=== PATIENT | female | born 1945 | race Caucasian/White ===

== ENCOUNTER → 2016-06-13 | Outpatient (CLI) | payer OTHER, MEDICARE ==
--- NOTE | 2016-06-13 08:52 | US ---
"Ultrasound of the Abdomen Limited History: R14.0, pancreatic exocrine insufficiency. Comparison: None. Findings: Gallbladder: No shadowing calculi, wall thickening, or pericholecystic fluid. Common bile duct is 2 m m in diameter which is normal. Liver: Homogeneous in echogenicity without definite focal solid lesions and measures 15 cm in length. Main portal vein is patent. Renal: Right kidney measures 10 x 4 x 5 cm without hydronephrosis. Pancreas: Homogeneous without peripancreatic fluid. Cystic lesion in the tail of the pancreas measuri ng 1.3 x 1.2 x 1 cm. Aorta: Atherosclerotic aorta without aneurysm. Impression: 1. Pancreatic tail cystic lesion measuring 1.3 x 1.2 x 1 cm. Differential diagnosis includes cystic n eoplasm, mucinous cystadenoma, mucinous cyst adenocarcinoma, pancreatic pseudocyst, among other etiol ogies. Recommend CT abdomen with contrast enhancement, pancreas protocol, for further characterizatio n in order to exclude malignancy. 2. No cholelithiasis or biliary ductal dilation. 3. Atherosclerotic aorta without aneurysm. A Follow-Up Required test result has been communicated via the [facility] | Critical Result syst em on 06/13/2016 8:48, Message ID [id number]."
== END ==
LOC: BMCIMAGING 07:46
PROVIDERS: ATTEND Allergy & Immunology Allergy
DX: K86.2 Cyst of pancreas (principal); I70.0 Atherosclerosis of aorta

== ENCOUNTER → 2016-06-16 | Outpatient (CLI) | payer OTHER, MEDICARE ==
[~2016-06-16] MED LIST: IOPAMIDOL (ISOVUE-300) 100 ML BTL IV ONE
[2016-06-16 13:52] LABS: CREATININE 0.9 mg/dL (0.6-1.0); GLOMERULAR FILTRATION RATE > 60
--- NOTE | 2016-06-16 15:49 | CT ---
CT Abdomen with Contrast History: Pancreatic cyst on recent abdominal ultrasound. Comparison: Abdominal ultrasound June 13, 2016. MR lumbar spine June 09, 2014. Technique: Axial unenhanced images were obtained through the abdomen in the arterial and portal venou s phases following the uneventful intravenous administration of 98 mL Isovue-300. Oral contrast was a dministered. Dose reduction techniques were utilized. Creatinine is 0.9. Findings: Left lower lobe granuloma is present. Scattered ill-defined areas of hyperenhancement in the liver are likely related to benign perfusion a nomalies, with no lesions identified on the delayed phase and normal liver contour. The spleen and ad renals are normal. There is a 1.3 x 0.9 cm simple appearing cyst in the posterior aspect of the pancr eatic body (series 4 image 73), corresponding to the finding on ultrasound. This is separate from the pancreatic duct. The pancreas otherwise normal. Tiny hypodensities in the kidneys are too small to c haracterize. Moderate stool is present in the colon. The visible colon and small bowel are normal caliber. The vis ible portions of the appendix are normal. A small fat-containing periumbilical hernia is present. Moderate atherosclerosis is present in a normal caliber aorta. The IVC, hepatic, portal, splenic, and superior mesenteric veins are patent. Circumaortic left renal vein is present. Accessory right hepat ic vein is noted. No pathologically enlarged lymph nodes are identified. Moderate compression fracture of L5 is stable. Impression: 1. 1.4-cm simple appearing pancreatic cyst. Follow-up MRI or CT is recommended in one year. 2. Additional findings as above. Findings and recommendations discussed with Makenna Handy June 16, 2016 at 1540 hours.
== END ==
LOC: FIMAGING 12:58
PROVIDERS: ATTEND Allergy & Immunology Allergy
DX: K86.2 Cyst of pancreas (principal); K42.9 Umbilical hernia without obstruction or gangrene; I70.0 Atherosclerosis of aorta; M48.56XA Collapsed vertebra, not elsewhere classified, lumbar region, initial encounter for fracture; J98.4 Other disorders of lung
CPT/HCPCS: 74160; Q9967

== ENCOUNTER 2016-12-28 04:39 | Inpatient (IN) | payer OTHER, MEDICARE ==
--- NOTE | 2016-12-28 04:54 | EDPHY ---
H & P Stated Complaint: cat bite, redness and pain worsening HPI/ROS: HPI CHIEF COMPLAINT: Right arm pain, cat bite, redness, swelling HISTORY OF PRESENT ILLNESS: This patient very pleasant 71-year-old female she does have significant past medical history for AFib on Coumadin, additionally recent diagnosis of small bowel bacterial overgrowth, she presents emergency room after she got bit by her own cat around 10:00 a.m. yesterday. Right forearm. Around 8:00 p.m. yesterday she went to urgent care with pain erythema and swelling. She now presents to the emergency room at 5 o'clock in the morning with worsening erythema, swelling and pain. She did take 1 dose of Augmentin. She states the pain and swelling redness has progressed overnight. She did not have an x-ray. She denies fever. She states her tetanus shot is updated yesterday at urgent care. Past Medical History: AFib on Coumadin, small-bowel overgrowth Past Surgical History: No recent surgery Social History: Denies daily use drugs alcohol tobacco products Family History: Noncontributory ROS REVIEW OF SYSTEMS: A comprehensive 10 point review of systems is otherwise negative aside from elements mentioned in the history of present illness. Exam Constitutional triage nursing summary reviewed, vital signs reviewed, awake/ alert. Eyes normal conjunctivae and sclera, EOMI, PERRLA. HENT normal inspection, atraumatic, moist mucus membranes, no epistaxis, neck supple/ no meningismus, no raccoon eyes. Respiratory clear to auscultation bilaterally, normal breath sounds, no respiratory distress, no wheezing. Cardiovascular rate normal, regular rhythm, no murmur, no edema, distal pulses normal. Gastrointestinal soft, non-tender, no rebound, no guarding, normal bowel sounds, no distension, no pulsatile mass. Genitourinary no CVA tenderness. Musculoskeletal no midline vertebral tenderness, full range of motion, no calf swelling, no tenderness of extremities, no meningismus, good pulses, neurovascularly intact. Skin right forearm dorsal aspect from the wrist up to 3rd of the forearm shows erythema, warmth, no crepitus, there is 1 discrete lesion with a cat bit her. Additionally over the dorsum of the right hand there was a recent surgical procedure with AK removed. She does have full range of motion of her wrist. Full range of motion of her elbow. Neurologic awake, alert and oriented x 3, AAOx3, moves all 4 extremities equally, motor intact, sensory intact, CN II-XII intact, normal cerebellar, normal vision, normal speech. Psychiatric normal mood/affect. Heme/Lymph/Immune no lymphadenopathy. Differential Diagnosis: Includes but is not limited to cat bite, cat bite causing cellulitis, significant cat bite infection, retained foreign body from cat bite. Medical Decision Making: Plan for this patient x-ray right forearm to rule out foreign body, IV establishment with blood cultures, blood work including plantar markers, failure of p. o. Augmentin. Will start on Unasyn. I have outlined the new area of spread of redness and dated. Re-evaluation: This patient need to be admitted to the hospitalist service for IV antibiotics. Reason for admission right forearm cellulitis from CAT bite progressively getting worse. Despite oral antibiotics outpatient. Source: Patient - Personal History Current Tetanus/Diphtheria Vaccine: Yes Tetanus Vaccine Date: 2016 - Medical/Surgical History Hx Asthma: No Hx Chronic Respiratory Disease: No Hx Diabetes: No Hx Cardiac Disease: Yes Hx Renal Disease: No Hx Cirrhosis: No Hx Alcoholism: Yes Hx HIV/AIDS: No Hx Splenectomy or Spleen Trauma: No Other PMH: PMHx: hypothyroid, insomnia/anxiety, atrial fibrillation. PSHx: tonsillectomy - Social History Smoking Status: Never smoked Constitutional: Initial Vital Signs Temperature (C) 36.4 C 12/28/16 04:45 Heart Rate 59 L 12/28/16 04:45 Respiratory Rate 14 12/28/16 04:45 Blood Pressure 130/60 H 12/28/16 04:45 O2 Sat (%) 96 12/28/16 04:45 O2 Delivery Mode Room Air Allergies/Adverse Reactions: No Known Allergies Allergy (Unverified 12/27/12 16:31) Home Medications: Medication Instructions Recorded Acetaminophen [Tylenol ES 500 mg 1,000 mg PO Q6HRS PRN 12/28/16 (*)] Denosumab [Prolia] 60 mg SC .[id number] 12/28/16 Herbals/Supplements -Info Only 1 ea PO AD 12/28/16 Levothyroxine [Synthroid 25 mcg 25 mcg PO DAILY06 12/28/16 (*)] Olopatadine HCl [Pazeo] 1 drop EACHEYE DAILY PRN 12/28/16 Warfarin Sodium [Coumadin 5MG (*)] 2.5 mg PO MOTH@2100 12/28/16 Warfarin Sodium [Coumadin 5MG (*)] 5 mg PO SUTUWEFRSA@2100 12/28/16 clonazePAM [Klonopin (*)] 0.25 mg PO BID PRN 12/28/16 Medical Decision Making - Data Points Laboratory Results: Laboratory Results 12/29/16 04:35 12/28/16 05:15 Microbiology Results: MICROBIOLOGY 12/28/16 05:30 Blood Blood Culture - Preliminary 12/28/16 05:15 Blood Blood Culture - Preliminary Medications Given: Clonazepam (Klonopin) 0.25 mg PO BID PRN PRN Reason: Anxiety/sleep Stop: 06/26/17 08:14 Last Admin: 12/30/16 00:09 Dose: 0.25 mg Hydromorphone HCl (Dilaudid) 0.2 - 0.4 mg IVP Q2HRS PRN PRN Reason: Pain, Severe Unable to Take PO Stop: 01/07/17 06:35 Last Admin: 12/28/16 07:59 Dose: 0.4 mg Ampicillin Sodium/Sulbactam (Sodium 3 gm/ Sodium Chloride) 100 mls @ 200 mls/ hr IV Q6HRS STACIE PRN Reason: Protocol Stop: 01/27/17 11:59 Last Admin: 12/29/16 23:21 Dose: 100 mls Ketorolac Tromethamine (Toradol) 15 mg IVP Q6HRS [facility] Stop: 01/02/17 17:59 Last Admin: 12/29/16 23:19 Dose: 15 mg Levothyroxine Sodium (Synthroid) 25 mcg PO DAILY06 [facility] Stop: 06/26/17 08:14 Last Admin: 12/29/16 05:59 Dose: 25 mcg Miscellaneous Medication (Non-Formulary) 1 ea PO DAILY@1800 [facility] Stop: 06/27/17 10:29 Last Admin: 12/29/16 18:30 Dose: 1 packet Oxycodone HCl (Oxycodone Ir) 5 - 10 mg PO Q4 PRN PRN Reason: Pain, Severe Able to Take PO Stop: 01/07/17 06:35 Last Admin: 12/28/16 09:28 Dose: 10 mg Warfarin Sodium (Coumadin) 5 mg PO SUTUWEFRSA@2100 [facility] Stop: 06/26/17 20:59 Last Admin: 12/28/16 21:54 Dose: 5 mg Warfarin Sodium (Coumadin) 2.5 mg PO MOTH@2099 [facility] Stop: 06/27/17 20:59 Last Admin: 12/29/16 20:01 Dose: 2.5 mg Discontinued Medications Sodium Chloride (Ns) 1,000 mls @ 0 mls/hr IV ONCE ONE PRN Reason: Wide Open Stop: 12/28/16 05:02 Last Admin: 12/28/16 05:24 Dose: 1,000 mls Ampicillin Sodium/Sulbactam (Sodium 3 gm/ Sodium Chloride) 100 mls @ 200 mls/ hr IV EDNOW ONE PRN Reason: Protocol Stop: 12/28/16 05:32 Last Admin: 12/28/16 05:48 Dose: 100 mls Ketorolac Tromethamine (Toradol) 30 mg IVP ONCE ONE Stop: 12/28/16 12:01 Last Admin: 12/28/16 13:16 Dose: 30 mg Miscellaneous Medication (Non-Formulary) 1 ea PO DAILY [facility] Stop: 06/27/17 10:29 Last Admin: 12/29/16 13:58 Dose: Not Given Morphine Sulfate (Morphine) 4 mg IVP EDNOW ONE Stop: 12/28/16 05:02 Last Admin: 12/28/16 05:23 Dose: 2 mg Ondansetron HCl (Zofran) 4 mg IVP EDNOW ONE Stop: 12/28/16 05:02 Last Admin: 12/28/16 05:23 Dose: 4 mg Departure - Departure Disposition: [facility] Acute Clinical Impression: Right forearm cellulitis Cat bite Qualifiers: Encounter type: initial encounter Qualified Code(s): W55.01XA - Bitten by cat, initial encounter Condition: Fair
[2016-12-28] MEDS ORDERED: NS 1,000 ML IV ONE (05:01)
[2016-12-28] MEDS ORDERED: ONDANSETRON 4 MG/2 ML VIAL IVP ONE (05:01)
[2016-12-28] MEDS ORDERED: AMPICILLIN/SULBACTAM 3 GM in NS 100 ML IV ONE (05:03)
[2016-12-28 05:28] LABS: % IMMATURE GRANULYOCYTES 0.2 % (0.0-1.1); ABSOLUTE IMMATURE GRANULOCYTES 0.02 10^3/uL (0.00-0.10); ADD DIFF? NO; ADD MORPH? NO; ADD SCAN? NO; ATYPICAL LYMPHOCYTE FLAG 0 (0-99); FRAGMENT RBC FLAG 0 (0-99); HEMATOCRIT 39.6 % (38.0-47.0); HEMOGLOBIN 13.7 g/dL (12.6-16.3); LEFT SHIFT FLG 0 (0-99); LIPEMIA HEMOLYSIS FLAG 90 (0-99); MEAN CELL HEMOGLOBIN 29.3 pg (27.9-34.1); MEAN CELL HEMOGLOBIN CONCENTR. 34.6 g/dL (32.4-36.7); MEAN CELL VOLUME 84.8 fL (81.5-99.8); MEAN PLATELET VOLUME 9.7 fL (8.7-11.7); PLATELET CLUMPS FLAG 20 (0-99); PLATELET COUNT 227 10^3/uL (150-400); RED BLOOD CELL COUNT 4.67 10^6/uL (4.18-5.33); RED CELL DISTRIBUTION WIDTH 13.5 % (11.5-15.2)
[2016-12-28 05:37] LABS: SEDIMENTATION RATE 7 MM/HR (0-30)
[2016-12-28 05:38] LABS: APTT 40.9 SEC (23.0-38.0); INR 2.13 (0.83-1.16)
[2016-12-28 05:41] LABS: ALANINE AMINOTRANSFERASE 47 IU/L (9-52); ALBUMIN 4.1 g/dL (3.5-5.0); ALKALINE PHOSPHATASE 55 IU/L (38-126); ANION GAP 11 mEq/L (8-16); ASPARTATE AMINOTRANSFERASE 28 IU/L (14-46); BILIRUBIN,TOTAL 0.7 mg/dL (0.1-1.4); C-REACTIVE PROTEIN 8.5 mg/L (<10.0); CALCIUM 8.9 mg/dL (8.5-10.4); CARBON DIOXIDE 22 mEq/l (22-31); CHLORIDE 110 mEq/L (97-110); CREATININE 0.7 mg/dL (0.6-1.0); GLOMERULAR FILTRATION RATE > 60; GLUCOSE 86 mg/dL (70-100); POTASSIUM 3.7 mEq/L (3.5-5.2); SODIUM 143 mEq/L (134-144); TOTAL PROTEIN 6.4 g/dL (6.3-8.2)
[2016-12-28] MEDS ORDERED: ONDANSETRON 4 MG/2 ML VIAL IVP PRN (06:36)
[2016-12-28] MEDS ORDERED: HYDROmorphONE/DILAUDID 1 MG/ML SYR IVP PRN (06:36)
[2016-12-28] MEDS ORDERED: oxyCODONE IR 5 MG TAB PO PRN (06:36)
[2016-12-28] MEDS ORDERED: ACETAMINOPHEN 325 MG TAB PO PRN (06:36)
--- NOTE | 2016-12-28 07:16 | GHP ---
[f rep st] HISTORY AND PHYSICAL DATE OF ADMISSION: 12/28/2016 CHIEF COMPLAINT: Cat bite. HISTORY: The patient is a 71-year-old female whose cat bit her at 10 a.m. yesterday morning. Her c at has never bitten her before. At about 4 p.m., she started to have a little worsening erythema ar ound the cat bite, and so she went immediately to Urgent Care. She was given a prescription for Aug mentin. She took the first dose last night at 9 p.m. Overnight, the erythema continued to worsen a nd was spreading up her arm beyond the margins demarcated at Urgent Care, so they came to the ER thi s morning. She denies any fever or chills. PAST MEDICAL HISTORY: 1. Atrial fibrillation. 2. Small bowel bacterial overgrowth. MEDICATIONS: Please see computer record for full detailed list. ALLERGIES: No known drug allergies. SOCIAL HISTORY: No smoking. Quit alcohol 38 years ago. Lives with her . REVIEW OF SYSTEMS: Complete review of systems obtained. Review of systems is negative regarding co nstitutional, HEENT, GI, pulmonary, cardiovascular, , hematology, skin, musculoskeletal, endocrine , psych, except for positives and negatives as noted in HPI. FAMILY HISTORY: Reviewed, noncontributory to presenting complaint. PHYSICAL EXAMINATION: GENERAL: Well-developed, well-nourished female in no acute distress. VITAL SIGNS: Temperature is 36.4, pulse 55, blood pressure 134/71, satting 97% on room air. EYES: Shila l conjunctivae. Pupils equal and reactive to light. ENT: Normal ears and nose. Hearing intact. Normal lips and teeth. Oropharynx moist. NECK: Trachea midline. No thyromegaly. CHEST: Normal respiratory effort. LUNGS: Clear to auscultation bilaterally. CARDIOVASCULAR: Regular rhythm. N o murmur. No lower extremity edema. ABDOMEN: Soft, nontender. No hepatosplenomegaly. SKIN: Her right arm has an area of significant erythema most prominent over the right wrist and does extend u p the arm, but not all the way to the elbow. There is an area of redness that is extending beyond t he original area of demarcation. She has difficult movement at the joint with lots of pain in the w rist. MUSCULOSKELETAL: No cyanosis or clubbing. Strength 5/5 upper and lower extremities. NEURO: Cranial nerves intact. Normal sensation to light touch. PSYCH: Alert and oriented x3. Normal m ood and affect. Normal judgment and insight. Normal memory. LABORATORY DATA: White count 8.27, hematocrit 39.6, platelets 227. Sodium 143, potassium 3.7, chlo ride 110, bicarb 22, BUN 20, creatinine 0.7, glucose 86. LFTs are normal. INR is 2.13. Forearm x-ray I looked at myself. Personal interpretation is no gas, no fracture. This case was discussed with Dr. Brandon Armijo, emergency room physician. He started her on IV Unas yn. ASSESSMENT AND PLAN: 1. Right arm cellulitis secondary to cat bite. Continue IV Unasyn. Watch the wrist joint closely to rule out deeper involvement as anticipated improvement occurs on IV Unasyn. She is requiring IV narcotics for pain control. 2. Atrial fibrillation. She is therapeutic on warfarin. This should be continued once her med rec is complete. 3. Small bowel bacterial overgrowth. She is currently off antibiotics. She follows for this at [facility]. She has ongoing gastrointestinal symptoms related to this. CODE STATUS: Full. ADMISSION STATUS: 1. Will admit to observation. Anticipate possible discharge within 24 hours if she has rapid impro vement. 2. DVT prophylaxis. She is chronically on warfarin which will be continued. /[id number]/MODL
[2016-12-28] MEDS: LEVOTHYROXINE 25 MCG TAB PO SCH (09:28)
[2016-12-28] MEDS ORDERED: KETOROLAC 30 MG/1 ML SDV IVP ONE (12:00)
[2016-12-28] MEDS: AMPICILLIN/SULBACTAM 3 GM in NS 100 ML IV SCH ×2 (13:16→18:04)
--- NOTE | 2016-12-28 13:28 | HOSPPROG ---
Hospitalist Progress Note Assessment/Plan: 71-y/o F with PMH on AC, small bowel bacterial overgrowth, here after cat bite on 12/27/16. Had worsening erythema and pain and presented to UC and started on abx. Came back due to ongoing issues. #. R forearm cellulitis 2/2 cat bite: started on IV Unasyn/ wrist joint is still quite painful and has extension beyond the lines will ask ID to come loock at this #. AF: on OAC with warfarin #. hypoT: home meds continued #. LOS: admitted to obs/ await ID input #. DVT ppx: on warfarin. Subjective: Reports pain not controlled. No f/c. Objective: Vital Signs Temp Pulse Resp BP Pulse Ox 99 F 65 16 94/51 L 97 12/28/16 11:20 12/28/16 11:20 12/28/16 11:20 12/28/16 11:20 12/28/16 11:20 12/27/16 12/28/16 12/29/16 05:59 05:59 05:59 Intake Total 1150 Balance 1150 PT 24.0 SEC (12.0-15.0) H 12/28/16 05:15 INR 2.13 (0.83-1.16) H 12/28/16 05:15 - Physical Exam Constitutional: no apparent distress, appears nourished Eyes: PERRL Ears, Nose, Mouth, Throat: moist mucous membranes Skin: other (R forearm with erythema ulnar styloid process) Neurologic: AAOx3 Psychiatric: interacting appropriately, not anxious ICD10 Worksheet Patient Problems: Problems Problem Status Onset Cat bite Acute Right forearm cellulitis Acute
[2016-12-28] MEDS: KETOROLAC 15 MG/1 ML SDV IVP SCH (18:04)
[2016-12-28] MEDS: WARFARIN SODIUM 5 MG TAB PO SCH (21:54)
[2016-12-29] MEDS: KETOROLAC 15 MG/1 ML SDV IVP SCH ×5 (00:30→23:19)
[2016-12-29] MEDS: AMPICILLIN/SULBACTAM 3 GM in NS 100 ML IV SCH ×5 (00:31→23:21)
[2016-12-29 04:48] LABS: % IMMATURE GRANULYOCYTES 0.3 % (0.0-1.1); ABSOLUTE IMMATURE GRANULOCYTES 0.02 10^3/uL (0.00-0.10); ADD DIFF? NO; ADD MORPH? NO; ADD SCAN? NO; ATYPICAL LYMPHOCYTE FLAG 0 (0-99); FRAGMENT RBC FLAG 0 (0-99); HEMATOCRIT 33.9 % (38.0-47.0); HEMOGLOBIN 11.8 g/dL (12.6-16.3); LEFT SHIFT FLG 0 (0-99); LIPEMIA HEMOLYSIS FLAG 90 (0-99); MEAN CELL HEMOGLOBIN 29.8 pg (27.9-34.1); MEAN CELL HEMOGLOBIN CONCENTR. 34.8 g/dL (32.4-36.7); MEAN CELL VOLUME 85.6 fL (81.5-99.8); MEAN PLATELET VOLUME 9.7 fL (8.7-11.7); PLATELET CLUMPS FLAG 20 (0-99); PLATELET COUNT 180 10^3/uL (150-400); RED BLOOD CELL COUNT 3.96 10^6/uL (4.18-5.33); RED CELL DISTRIBUTION WIDTH 13.6 % (11.5-15.2)
[2016-12-29] MEDS: LEVOTHYROXINE 25 MCG TAB PO SCH (05:59)
[2016-12-29] MEDS ORDERED: ACETAMINOPHEN 500 MG TAB PO PRN (07:52)
[2016-12-29] MEDS ORDERED: Olopatadine Hcl [Pazeo] 1 DROP EACHEYE PRN (07:52)
[2016-12-29] MEDS ORDERED: Herbals/Supplements -Info Only PO SCH (08:00)
--- NOTE | 2016-12-29 08:50 | HOSPPROG ---
Hospitalist Progress Note Assessment/Plan: 71-y/o F with PMH on AC, small bowel bacterial overgrowth, here after cat bite on 12/27/16. Had worsening erythema and pain and presented to UC and started on abx. Came back due to ongoing issues. today is my 1st encounter with the patient. Chart reviewed. #. R forearm/wrist cellulitis 2/ cat bite: On IV Unasyn infectious disease team to come see today concerned it is close to r wrist area/ may need further imaging xray shows not retained tooth from the cat #. AF: on OAC with warfarin INR is 2.3 #. hypothyroidism: home meds continued #. LOS: She will require another midnight stay due to the above/she will need IV abx and further evaluation by ID team. #. DVT ppx: on warfarin. Subjective: Sangeetha said her right wrist area is feeling better and has a bit more mobility. Objective: Vital Signs Temp Pulse Resp BP Pulse Ox 36.5 C 57 L 18 142/65 H 98 12/29/16 08:00 12/29/16 08:00 12/29/16 08:00 12/29/16 08:00 12/29/16 08:00 Laboratory Results 12/29/16 04:35 12/28/16 12/29/16 12/30/16 05:59 05:59 05:59 Intake Total 1550 Balance 1550 PT 24.0 SEC (12.0-15.0) H 12/28/16 05:15 INR 2.13 (0.83-1.16) H 12/28/16 05:15 - Physical Exam Constitutional: no apparent distress Eyes: PERRL Ears, Nose, Mouth, Throat: moist mucous membranes, hearing normal Cardiovascular: regular rate and rhythym Respiratory: no respiratory distress Gastrointestinal: normoactive bowel sounds Skin: warm, other (right wrist and forearm area w swelling, redness) Neurologic: AAOx3 Psychiatric: interacting appropriately, not anxious ICD10 Worksheet Patient Problems: Problems Problem Status Onset Cat bite Acute Right forearm cellulitis Acute
[2016-12-29] MEDS ORDERED: VSL PO SCH (10:30)
[2016-12-29] MEDS: VSL PO SCH (18:30)
--- NOTE | 2016-12-29 20:51 | GCON ---
[f rep st] CONSULTATION INFECTIOUS DISEASES CONSULTATION DATE OF CONSULTATION: 12/29/2016 REFERRING PHYSICIAN: Julee Epstein NP REASON FOR CONSULTATION: Right upper extremity cellulitis after a cat bite. HISTORY OF PRESENT ILLNESS: The patient is a 71-year-old female with a past medical history of atri al fibrillation and small intestinal bacterial overgrowth, who I am asked to see in consultation for a right upper extremity cellulitis in the setting of cat bite. The patient was playing with her ca t on Thursday when her cat bit her in the forearm. Several hours later, she had developed pain, juan a thema, prompting evaluation at Urgent Care. She describes being started on Augmentin and having a t etanus booster performed. By 4:00 in the morning, she had progressive erythema, tenderness and spre ad up her forearm, prompting repeat evaluation in the Emergency Department. The patient does descri be that she did have tenderness with range of motion of her wrist and digits. She did not develop a ny lymphangitis. She has been started on Unasyn, and notes that she is clinically improving. She h as not noted any tenderness in the right axilla. No drainage. Primary residual area of tenderness is over the dorsal lateral aspect of her wrist. X-rays were obtained at the time of admission, whic h showed no foreign bodies or acute osseous abnormalities. Based on the above findings, I am now as ked to assist in her ongoing management. PAST MEDICAL HISTORY: Atrial fibrillation, small intestinal bacterial overgrowth. PAST SURGICAL HISTORY: Unremarkable. CURRENT MEDICATIONS: Unasyn 3 g IV q.6 hours, Klonopin as needed for anxiety/sleep, Toradol 15 mg I V q.6 hours, Synthroid 25 mcg p.o. daily, warfarin 5 mg p.o. 5 times per week and 2.5 mg p.o. twice per week. ALLERGIES: No known drug allergies. SOCIAL HISTORY: The patient does not smoke or drink alcohol. No recent travel. Pet cat as above. Cat is an indoor cat that is fully vaccinated. FAMILY HISTORY: Coronary artery disease. REVIEW OF SYSTEMS: Outside that noted in HPI, remainder of 10-system review is unremarkable. PHYSICAL EXAMINATION: VITAL SIGNS: Temperature 36.5, heart rate 57, respiratory rate 18, blood pre ssure 142/65, oxygen saturation 98% on room air. GENERAL: The patient is a thin female in no acute distress. She appears nontoxic. HEENT: There is no scleral icterus, conjunctival injection, or c onjunctival petechiae. Oropharynx is clear without lesions. Dentition is in good repair. Mucous m embranes are moist. There is no nasal discharge. There is no tenderness over the frontal, maxillar y, or mastoid area. NECK: Supple without palpable lymphadenopathy or thyromegaly. CHEST: Clear t o auscultation bilaterally without adventitious sounds. Respiratory effort is normal. CARDIOVASCUL AR: Bradycardic without murmurs, gallops, or rubs. ABDOMEN: Soft, nontender, nondistended. There is no palpable organomegaly. MUSCULOSKELETAL: The right dorsal lateral region of the wrist shows erythema with warmth and tenderness, but no palpable fluctuance; there is faint erythema extending m ore proximally into the forearm with mild warmth and tenderness; patient is able to move her digits without difficulty; there is no pain to palpation of the wrist or with range of motion of the wrist. LYMPHATICS: No cervical or supraclavicular nodes. There is no lymphangitis in the right forearm or upper arm. SKIN: See musculoskeletal exam; no stigmata of endocarditis. Skin is warm and dry t o touch. NEUROLOGIC: The patient is alert and interacts appropriately with examiner. Cranial nerv es 2-12 are grossly intact. Sensation is grossly intact. Muscle tone and bulk are normal. LABORATORY DATA: White blood cell count 7.3, hematocrit 33.9, platelets 180, neutrophils 52% lympho cytes 34%, serum creatinine 0.7, AST 28, ALT 47, bilirubin 0.7, alkaline phosphatase 55, albumin 4.1 , INR is 2.1. Blood cultures x2 sets are no growth. X-ray as outlined above. This was reviewed an d interpreted by me. IMPRESSION: Right upper extremity cellulitis after cat bite. Clinically improving with Unasyn. Mi crobiologic etiologies likely include pasteurella, Staphylococcus aureus, or other oropharyngeal avery ra. We will need to follow area over dorsal lateral aspect of wrist to ensure this does not evolve into drainable focus. Additionally, we will need to keep in mind that puncture in this region is im mediately overlying bone. Current clinical findings preclude transition to oral antibiotics. RECOMMENDATIONS: 1. Continue Unasyn. 2. Elevate upper extremity as feasible. 3. Follow clinical response to above measures. 4. Thank you for this consultation. We will continue to follow the patient with you. /[id number]/MODL
[2016-12-29] MEDS ORDERED: WARFARIN SODIUM 5 MG TAB PO SCH (21:00)
[2016-12-30] MEDS: clonazePAM 0.5 MG TAB PO PRN ×3 (00:09→22:59)
[2016-12-30 04:53] LABS: INR 2.75 (0.83-1.16); PROTIME(PATIENT) 29.4 SEC (12.0-15.0)
[2016-12-30] MEDS: KETOROLAC 15 MG/1 ML SDV IVP SCH ×4 (05:07→22:59)
[2016-12-30] MEDS: AMPICILLIN/SULBACTAM 3 GM in NS 100 ML IV SCH ×4 (05:09→22:59)
[2016-12-30] MEDS: LEVOTHYROXINE 25 MCG TAB PO SCH (05:11)
--- NOTE | 2016-12-30 12:16 | HOSPPROG ---
Hospitalist Progress Note Assessment/Plan: 71-y/o F with PMH on AC, small bowel bacterial overgrowth, here after cat bite on 12/27/16. Had worsening erythema and pain and presented to UC and started on abx. Came back due to ongoing issues. #. R forearm/wrist cellulitis 2/2 cat bite: On IV Unasyn appreciate ID's involvement xray shows not retained tooth from the cat improving/ but still very tender over wrist are #. AF: on OAC with warfarin INR is 2.75 #. hypothyroidism: home meds continued #. LOS: penidng #. DVT ppx: on warfarin. monitor INR closely being on abx Subjective: Fareed said her right forearm area is feeling better. Objective: Vital Signs Temp Pulse Resp BP Pulse Ox 36.4 C 67 18 115/72 97 12/30/16 07:23 12/30/16 07:23 12/30/16 07:23 12/30/16 07:23 12/30/16 07:23 12/29/16 12/30/16 12/31/16 05:59 05:59 05:59 Intake Total 100 Balance 100 PT 29.4 SEC (12.0-15.0) H 12/30/16 04:26 INR 2.75 (0.83-1.16) H 12/30/16 04:26 - Physical Exam Constitutional: no apparent distress, appears nourished Eyes: PERRL Ears, Nose, Mouth, Throat: hearing normal Cardiovascular: regular rate and rhythym Respiratory: no respiratory distress Gastrointestinal: normoactive bowel sounds Skin: other (right forearm area with less redness and swelling/ has a small puncture site that is slightly elevated) Neurologic: AAOx3 Psychiatric: interacting appropriately ICD10 Worksheet Patient Problems: Problems Problem Status Onset Cat bite Acute Right forearm cellulitis Acute
--- NOTE | 2016-12-30 14:26 | PCMIDPN ---
Assessment/Plan: Assessment/Plan: 1. Right forearm cellulitis after cat bite: - Clinically improving with respect to degree and extent of erythema. - started to form a discrete swelling distally near wrist and possibly a second area over bite site.. Close clinical monitoring as this may need eventual I & d. -Cultures reviewed with patient -Currently on Unasyn with clinical response. Continue for now. Still needs IV therapy -Plan of care with patient and , likely need for additional 1-2 days in hospital to see if abscess with form and for possible I & D prior to discharge plans -care coordinated with hospitalist team. meds unasyn 3g q6- 12/29/16 Subjective: afebrile. FEeling better overall. redness has improved. more concentrated redness and swelling down towards wrist with pain. able to move wrist joint but has some pain. denies sob, abd pain or diarrhea. denies numbness/tingling of finger tips. Objective: Vital Signs Temp Pulse Resp BP Pulse Ox 36.4 C 67 18 115/72 97 12/30/16 07:23 12/30/16 07:23 12/30/16 07:23 12/30/16 07:23 12/30/16 07:23 12/29/16 12/30/16 12/31/16 05:59 05:59 05:59 Intake Total 100 Balance 100 ESR 7 MM/HR (0-30) 12/28/16 05:15 C-Reactive Protein 8.5 mg/L (<10.0) 12/28/16 05:15 - Physical Exam General Appearance: alert, no apparent distress Respiratory: lungs clear Cardiac/Chest: regular rate, rhythm Extremities: swelling Abdomen: normal bowel sounds, non-tender, soft, No distended Skin: erythema (right forarm: erythema mostly concentrated down near wrist with one small area of swelling laterally. bite site wiht also a bit of swelling too. skin warm. tender espeially near wrist. able to flex and extend but wiht some limitation. peripheral pulses well appreciated. sensation intact. some retraction of erythema especially mid foream and near elbow. ) - Time Spent With Patient Time Spent with Patient: greater than 35 minutes Time Spent with Patient: Greater than 35 minutes spent on this patients care, greater than 50% of time spent counseling, educating, and coordinating care regarding the above mentioned plan. ICD10 Worksheet Patient Problems: Problems Problem Status Onset Cat bite Acute Right forearm cellulitis Acute
[2016-12-30] MEDS: VSL PO SCH (17:43)
[2016-12-30] MEDS: WARFARIN SODIUM 5 MG TAB PO SCH (21:17)
[2016-12-30 22:51] VITALS: TEMP 97.7; O2SAT 97
[2016-12-31 05:31] LABS: INR 2.41 (0.83-1.16); PROTIME(PATIENT) 26.5 SEC (12.0-15.0)
[2016-12-31] MEDS: KETOROLAC 15 MG/1 ML SDV IVP SCH ×2 (06:23→11:54)
[2016-12-31] MEDS: LEVOTHYROXINE 25 MCG TAB PO SCH (06:23)
[2016-12-31] MEDS: AMPICILLIN/SULBACTAM 3 GM in NS 100 ML IV SCH ×2 (06:24→11:54)
[2016-12-31 08:23] VITALS: BP 124/71; PULSE 55; RESP 12
--- NOTE | 2016-12-31 10:44 | PCMIDPN ---
Assessment/Plan: RUE cat bite with associated cellulitis, significant improvement today --DC on Augmentin 875mg PO BID 8 more days --Follow up ID clinic arranged --continue elevation Time 20 min >50% time spent with education and counseling and coordinating discharge with primary team Subjective: trouble sleeping R arm feels better Objective: Vital Signs Temp Pulse Resp BP Pulse Ox 36.5 C 55 L 12 124/71 H 97 12/31/16 08:00 12/31/16 08:00 12/31/16 08:00 12/31/16 08:00 12/31/16 08:00 12/30/16 12/31/16 01/01/17 05:59 05:59 05:59 Intake Total 100 400 Balance 100 400 ESR 7 MM/HR (0-30) 12/28/16 05:15 C-Reactive Protein 8.5 mg/L (<10.0) 12/28/16 05:15 - Physical Exam General Appearance: alert, no apparent distress Respiratory: No accessory muscle use Extremities: other (anterior wrist puncture site with resolved erythema. Still small round area erythema lateral wrist but no fluctuance ) ICD10 Worksheet Patient Problems: Problems Problem Status Onset Cat bite Acute Right forearm cellulitis Acute
--- NOTE | 2016-12-31 10:50 | HOSPPROG ---
Hospitalist Progress Note Assessment/Plan: 71-y/o F with PMH on AC, small bowel bacterial overgrowth, here after cat bite on 12/27/16. Had worsening erythema and pain and presented to UC and started on abx. Came back due to ongoing issues. #. R forearm/wrist cellulitis 2/2 cat bite: On IV Unasyn appreciate ID's involvement xray shows not retained tooth from the cat much improved #. AF: on OAC with warfarin INR is therapeutic #. hypothyroidism: home meds continued #. LOS: dc Subjective: Sangeetha is feeling much better today. Objective: Vital Signs Temp Pulse Resp BP Pulse Ox 36.5 C 55 L 12 124/71 H 97 12/31/16 08:00 12/31/16 08:00 12/31/16 08:00 12/31/16 08:00 12/31/16 08:00 12/30/16 12/31/16 01/01/17 05:59 05:59 05:59 Intake Total 100 400 Balance 100 400 PT 26.5 SEC (12.0-15.0) H 12/31/16 05:00 INR 2.41 (0.83-1.16) H 12/31/16 05:00 - Physical Exam Constitutional: no apparent distress, appears nourished, not in pain Eyes: PERRL Ears, Nose, Mouth, Throat: hearing normal Respiratory: no respiratory distress Skin: other (right wrist with significant less redness, swelling and tenderness) Musculoskeletal: full muscle strength Neurologic: AAOx3 Psychiatric: interacting appropriately ICD10 Worksheet Patient Problems: Problems Problem Status Onset Cat bite Acute Right forearm cellulitis Acute
--- NOTE | 2016-12-31 14:07 | GDS ---
[f rep st] DISCHARGE SUMMARY DISCHARGE DIAGNOSES: 1. Right forearm wrist cellulitis secondary to cat bite. 2. Atrial fibrillation. 3. Hypothyroidism. CONSULTATIONS DURING HER STAY: Dr. Ceferino Kennedy, with Infectious Disease. HISTORY OF PRESENT ILLNESS: Briefly, the patient is a 71-year-old female, whose cat bit her after s he was playing with the cat. She started to have worsening erythema, was seen in Urgent Care. She wa s given a prescription for Augmentin. She took the 1st dose that night but the erythema continued to worsen. She was admitted, treated with IV Unasyn. Today, she will be discharged on Augmentin and fu rther follow up with the Infectious Disease team. HOSPITAL COURSE PER PROBLEM: 1. Right forearm wrist cellulitis secondary to cat bite. This is markedly improved with Unasyn. 2. Atrial fibrillation on Coumadin. INR is therapeutic. 3. Hypothyroidism. Home medications have been continued. CONDITION ON DISCHARGE: Stable. Blood pressure is 124/71, O2 saturation on room air 97%, respirator y rate is 12, pulse is 55, temperature 36.5 Celsius. MEDICATIONS AT DISCHARGE: Please see the EMR. DISCHARGE INSTRUCTIONS: 1. Follow up with Dr. Kennedy as scheduled. 2. If she does have worsening erythema, redness, to return to the ER. 3. Get her INR checked on Thursday because antibiotics will affect this. Greater than 30 minutes spent in discharging and coordinating care. /[id number]/MODL
== END 2016-12-31 13:06 | disposition home or self-care (01) | DRG 603 ==
LOC: F3E 06:13 → OBSVTOIN 12-29 10:47
PROVIDERS: ADMIT Internal Medicine; ATTEND Internal Medicine
DX: L03.113 Cellulitis of right upper limb (principal); S60.871A Other superficial bite of right wrist, initial encounter; W55.01XA Bitten by cat, initial encounter; I48.91 Unspecified atrial fibrillation; E03.9 Hypothyroidism, unspecified; Z79.01 Long term (current) use of anticoagulants
CPT/HCPCS: 96374; G0378; J0295; J1170; J1885; J2405

== ENCOUNTER → 2017-03-09 | Outpatient (CLI) | payer OTHER, MEDICARE | LOC: FIMAGING 09:09 | PROVIDERS: ATTEND Family Medicine | DX: Z12.31 Encounter for screening mammogram for malignant neoplasm of breast (principal) | CPT/HCPCS: G0202 ==

== ENCOUNTER → 2017-10-12 | Outpatient (CLI) | payer OTHER, MEDICARE | LOC: BHFA 13:00 | PROVIDERS: ATTEND Internal Medicine Cardiovascular Disease | DX: R07.9 Chest pain, unspecified (principal); R06.02 Shortness of breath | CPT/HCPCS: 78452; 93017; A9500 ==

== ENCOUNTER → 2017-10-14 | Outpatient (CLI) | payer OTHER, MEDICARE | LOC: BHFA 14:45 | PROVIDERS: ATTEND Internal Medicine Cardiovascular Disease | DX: R00.2 Palpitations (principal); R06.02 Shortness of breath; I25.10 Atherosclerotic heart disease of native coronary artery without angina pectoris ==

== ENCOUNTER 2017-10-15 09:27 | Emergency (ER) | payer OTHER, MEDICARE ==
--- NOTE | 2017-10-15 09:47 | CPEKG ---
Heart Rate: 69 RR Interval: 870 P-R Interval: 200 QRSD Interval: 102 QT Interval: 400 QTC Interval: 429 P [place]: 80 QRS [place]: 28 T Wave [place]: 43 EKG Severity - NORMAL ECG - EKG Impression: SINUS RHYTHM Electronically Signed By: Ceferino Vilchis 15-Oct-2017 10:51:15
[2017-10-15 10:13] LABS: PLATELET COUNT 269 10^3/uL (150-400)
[2017-10-15 10:23] LABS: INR 2.3 (0.83-1.16); PROTIME(PATIENT) 25.3 SEC (12.0-15.0)
--- NOTE | 2017-10-15 10:29 | EDPHY ---
H & P Time Seen by Provider: 10/15/17 09:49 HPI/ROS: General Appearance: Rapid heart rate Eyes: Patient is a 72-year-old female with history of tachycardia. This morning she was hiking and then came home and then developed fast heart rate at about 160 for 15 min. She is wearing a Holter monitor for tachycardia. 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 She was slightly lightheaded with her fast heart rate but no chest discomfort or shortness of breath. No unusual leg pain or swelling. She has had similar symptoms previously. She has been told that this is PSVT however she is on Coumadin. She is unaware if this has been atrial fibrillation or not. She also had an echocardiogram for cardiology yesterday. Results unknown. Patient has no symptoms now . ENT, Mouth: Mucous membranes are moist. Respiratory: There are no retractions, lungs are clear to auscultation. Cardiovascular: Fast heart rate Gastrointestinal: Abdomen is soft and nontender, no masses, bowel sounds normal. Neurological: Awake and alert, sensory and motor exams grossly normal. Skin: Warm and dry, no rashes. Musculoskeletal: Neck is supple nontender. Extremities symmetrical, full range of motion. Psychiatric: Patient is oriented X 3, there is no agitation. Past Medical/Surgical History: Hypothyroid, insomnia and anxiety, possible atrial fibrillation or tachycardia Social History: , nonsmoker, no alcohol Smoking Status: Never smoked Physical Exam: General Appearance: Alert pleasant well-developed female no distress vital signs are stable Eyes: Pupils equal and round no pallor or injection. ENT, Mouth: Mucous membranes are moist. Respiratory: There are no retractions, lungs are clear to auscultation. Cardiovascular: Regular rate and rhythm. Gastrointestinal: Abdomen is soft and nontender, no masses, bowel sounds normal. Neurological: Awake and alert, sensory and motor exams grossly normal. Skin: Warm and dry, no rashes. Musculoskeletal: Neck is supple nontender. Extremities symmetrical, full range of motion. Psychiatric: Patient is oriented X 3, there is no agitation. Constitutional: Initial Vital Signs Temperature (C) 36.4 C 10/15/17 09:34 Heart Rate 75 10/15/17 09:34 Respiratory Rate 16 10/15/17 09:34 Blood Pressure 130/66 H 10/15/17 09:34 O2 Sat (%) 96 10/15/17 09:34 O2 Delivery Mode Room Air Allergies/Adverse Reactions: cyclobenzaprine Allergy (Verified 10/15/17 09:32) Home Medications: Medication Instructions Recorded Acetaminophen [Tylenol ES 500 mg 1,000 mg PO Q6HRS PRN 12/28/16 (*)] Denosumab [Prolia] 60 mg SC .[id number] 12/28/16 Herbals/Supplements -Info Only 1 ea PO AD 12/28/16 Levothyroxine [Synthroid 25 mcg 25 mcg PO DAILY06 12/28/16 (*)] Warfarin Sodium [Coumadin 5MG (*)] 2.5 mg PO MOTH@209912/28/16 Warfarin Sodium [Coumadin 5MG (*)] 5 mg PO SUTUWEFRSA@209912/28/16 Diltiazem HCl [Diltiazem 24Hr Cd] 120 mg PO DAILY #10 cap.er.24h 10/15/17 Medical Decision Making - Diagnostics EKG Interpretation: EKG interpreted by me shows normal sinus rhythm normal interval and axis. QRS is normal there is no significant ST elevation or depression. No arrhythmia. The rate is 69 Procedures: IV normal saline, monitor ED Course/Re-evaluation: Patient has remained stable on re-evaluation. She did have a coughing episode which caused an elevated heart beat transiently. It appears on analysis of that rhythm strip that this was at least junctional tachycardia. It was really not sustained. Re-evaluation 11 10 patient is stable. She and I discussed laboratory evaluation and EKG findings. We discussed treatment plan including criteria for return importance of follow-up and further evaluation. She expresses understanding And agreement I consulted and discussed case with Dr. King for Cardiology who recommends discharge from the emergency department with prescription for diltiazem 120 mg daily and they would like to see the patient in the office this morning to further evaluate the Holter monitor rhythm. Differential Diagnosis: Probable SVT or atrial fibrillation. Currently normal workup and in normal sinus rhythm - Data Points Laboratory Results: Laboratory Results 10/15/17 09:45 10/15/17 09:45 10/15/17 10/15/17 10/15/17 10:00 09:45 09:45 WBC RBC Hgb Hct MCV MCH MCHC RDW Plt Count MPV Neut % (Auto) Lymph % (Auto) [place] % (Auto) Eos % (Auto) Baso % (Auto) Nucleat RBC Rel Count Absolute Neuts (auto) Absolute Lymphs (auto) Absolute Monos (auto) Absolute Eos (auto) Absolute Basos (auto) Absolute Nucleated RBC Immature Gran % Immature Gran # PT 25.3 SEC H SEC (12.0-15.0) INR 2.30 H (0.83-1.16) APTT 42.2 SEC H SEC (23.0-38.0) Sodium 145 mEq/L mEq/L (135-145) Potassium 3.9 mEq/L mEq/L (3.3-5.0) Chloride 109 mEq/L mEq/L (97-110) Carbon Dioxide 24 mEq/l mEq/l (22-31) Anion Gap 12 mEq/L mEq/L (8-16) BUN 26 mg/dL H mg/dL (7-23) Creatinine 0.7 mg/dL mg/dL (0.6-1.0) Estimated GFR > 60 Glucose 83 mg/dL mg/dL (70-100) Calcium 9.2 mg/dL mg/dL (8.5-10.4) POC Troponin I 0.01 ng/mL ng/mL (0.00-0.08) 10/15/17 09:45 WBC 6.67 10^3/uL 10^3/uL (3.80-9.50) RBC 4.93 10^6/uL 10^6/uL (4.18-5.33) Hgb 14.8 g/dL g/dL (12.6-16.3) Hct 42.4 % % (38.0-47.0) MCV 86.0 fL fL (81.5-99.8) MCH 30.0 pg pg (27.9-34.1) MCHC 34.9 g/dL g/dL (32.4-36.7) RDW 13.7 % % (11.5-15.2) Plt Count 269 10^3/uL 10^3/uL (150-400) MPV 9.9 fL fL (8.7-11.7) Neut % (Auto) 52.2 % % (39.3-74.2) Lymph % (Auto) 32.8 % % (15.0-45.0) [place] % (Auto) 7.9 % % (4.5-13.0) Eos % (Auto) 6.4 % % (0.6-7.6) Baso % (Auto) 0.6 % % (0.3-1.7) Nucleat RBC Rel Count 0.0 % % (0.0-0.2) Absolute Neuts (auto) 3.47 10^3/uL 10^3/uL (1.70-6.50) Absolute Lymphs (auto) 2.19 10^3/uL 10^3/uL (1.00-3.00) Absolute Monos (auto) 0.53 10^3/uL 10^3/uL (0.30-0.80) Absolute Eos (auto) 0.43 10^3/uL H 10^3/uL (0.03-0.40) Absolute Basos (auto) 0.04 10^3/uL 10^3/uL (0.02-0.10) Absolute Nucleated RBC 0.00 10^3/uL 10^3/uL (0-0.01) Immature Gran % 0.1 % % (0.0-1.1) Immature Gran # 0.01 10^3/uL 10^3/uL (0.00-0.10) PT INR APTT Sodium Potassium Chloride Carbon Dioxide Anion Gap BUN Creatinine Estimated GFR Glucose Calcium POC Troponin I Point of Care Test Results: Chemistry 10/15/17 10:00 POC Troponin I 0.01 ng/mL ng/mL (0.00-0.08) Departure - Departure Disposition: Home, Routine, Self-Care Clinical Impression: Palpitations Condition: Good Instructions: Heart Palpitations (ED) Additional Instructions: Go to [facility] for evaluation of your Holter monitor rhythm. I spoke with Dr. Humberto King who will see you in the office Referrals: Krystal Lawson MD [Primary Care Provider] - As per Instructions Luis E King MD [Medical Doctor] - 1 day without fail Prescriptions: Diltiazem HCl [Diltiazem 24Hr Cd] 120 mg PO DAILY #10 cap.er.24h
[2017-10-15 10:53] VITALS: BP 121/70
== END 2017-10-15 11:41 | disposition home or self-care (01) ==
DX: R00.2 Palpitations (principal); Z79.01 Long term (current) use of anticoagulants
CPT/HCPCS: 84484-PO

== ENCOUNTER 2018-02-08 16:01 | Emergency (ER) | payer OTHER, MEDICARE ==
[2018-02-08 16:12] VITALS: BP 106/51
--- NOTE | 2018-02-08 16:16 | EDPHY ---
H & P Time Seen by Provider: 02/08/18 16:10 HPI/ROS: CHIEF COMPLAINT: Dog bite right forearm HISTORY OF PRESENT ILLNESS: 72-year-old female daily Coumadin secondary to atrial fibrillation history arrives via private vehicle after a [place] dog bit her on the right forearm as she was walking by. 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 She was wearing long sleeves and notes multiple abrasions and puncture wounds to her right forearm. No underlying osseous discomfort. Occurred shortly prior to arrival. No history of immunocompromised or suppressed conditions. PRIMARY CARE PROVIDER:Dr. Krystal Lawson REVIEW OF SYSTEMS: 10 systems reviewed and are negative with exception of illness mentioned in the history of present illness PHYSICAL EXAM (Prior to examination, patient consented to physical exam, hands were washed and my usual and customary physical exam procedures followed) 1) GENERAL: Well-developed, well-nourished, alert and oriented. Appears to be in no acute distress. 2) HEAD: Normocephalic 3) HEENT: sclera anicteric 4) LUNGS: Breathing comfortably. 5) SKIN: Right forearm: Total of 5 puncture wounds on both the volar and dorsal surfaces all with no signs of infection. All superficial. Soft compartments. Full pain-free range of motion including no tenderness over the radial head. Distal pulses and capillary refill are brisk. Smoking Status: Never smoked Constitutional: Initial Vital Signs Temperature (C) 36.6 C 02/08/18 16:10 Heart Rate 71 02/08/18 16:10 Respiratory Rate 18 02/08/18 16:10 Blood Pressure 106/51 L 02/08/18 16:10 O2 Sat (%) 94 02/08/18 16:10 O2 Delivery Mode Room Air Allergies/Adverse Reactions: cyclobenzaprine Allergy (Verified 02/08/18 16:10) Home Medications: Medication Instructions Recorded Acetaminophen [Tylenol ES 500 mg 1,000 mg PO Q6HRS PRN 12/28/16 (*)] Denosumab [Prolia] 60 mg SC .[id number] 12/28/16 Herbals/Supplements -Info Only 1 ea PO AD 12/28/16 Levothyroxine [Synthroid 25 mcg 25 mcg PO DAILY06 12/28/16 (*)] Warfarin Sodium [Coumadin 5MG (*)] 2.5 mg PO MOTH@209912/28/16 Warfarin Sodium [Coumadin 5MG (*)] 5 mg PO SUTUWEFRSA@209912/28/16 Diltiazem HCl [Diltiazem 24Hr Cd] 120 mg PO DAILY #10 cap.er.24h 10/15/17 Amoxicillin/Clavulanate Pot 875 mg PO BID #14 tab 02/08/18 [Augmentin 875 mg tab] MDM/Departure - [facility] ED Course/Re-evaluation: Patient has been given 1st dose of Augmentin in the ER cleansed. There primarily abrasions. They will be allowed to heal via secondary intention. She is on daily Coumadin for atrial fibrillation history, last checked 3 days ago was 1.9. Today is Thursday. I recommended a 2 day wound check as well as INR recheck with her primary care provider Dr. Krystal Lawson. She currently has no signs of infection. She feels comfortable being discharged. I saw this patient independently based on established practice protocols. Care of patient under supervision of secondary supervising physician Dr Dorsey . - Depart Disposition: Home, Routine, Self-Care Clinical Impression: Dog bite of right forearm Condition: Good Instructions: Animal Bite (ED) Additional Instructions: Return to the ER if you develop redness, swelling, discharge, warmth to the wound, red streaks going up your arm, or any other symptoms that concern you. Prescriptions: Amoxicillin/Clavulanate Pot [Augmentin 875 mg tab] 875 mg PO BID #14 tab Referrals: Krystal Lawson MD [Primary Care Provider] - 1-2 days without fail
[2018-02-08] MEDS ORDERED: LET GEL TOPICAL 1 EA SYR TP ONE ×2 (16:20→16:22)
[2018-02-08] MEDS ORDERED: AMOXICILLIN/CLAVULANATE POT 875/125 MG TAB PO ONE (16:23)
== END 2018-02-08 17:21 | disposition home or self-care (01) ==
DX: S51.831A Puncture wound without foreign body of right forearm, initial encounter (principal); W54.0XXA Bitten by dog, initial encounter; Y99.8 Other external cause status; I48.91 Unspecified atrial fibrillation; Z79.01 Long term (current) use of anticoagulants

== ENCOUNTER → 2018-03-26 | Outpatient (CLI) | payer OTHER, MEDICARE | LOC: FIMAGING 15:48 | PROVIDERS: ATTEND Family Medicine | DX: Z12.31 Encounter for screening mammogram for malignant neoplasm of breast (principal) ==

== ENCOUNTER → 2018-10-26 | Outpatient (CLI) | payer OTHER, MEDICARE | LOC: FIMAGING 10:42 ==